=== PATIENT | male | born 1935 | race Caucasian/White ===

== ENCOUNTER → 2016-09-27 | Outpatient (REF) | payer MEDICARE ==
[2016-09-27 17:32] LABS: DIFF SLIDE NUMBER 227; MEAN CORPUSCULAR HEMOGLOBIN 29.7 pg (27.0-33.0); MEAN CORPUSCULAR VOLUME 87.3 fl (80.0-96.0); RED CELL DISTRIBUTION WIDTH 17.5 % (11.5-14.5); WHITE BLOOD COUNT 2.1 K/mm3 (4.0-10.0)
[2016-09-27 17:38] LABS: ALBUMIN 3.2 GM/DL (3.2-5.2); ALBUMIN/GLOBULIN RATIO 1.23 (1.00-1.93); ALKALINE PHOSPHATASE 142 U/L (45-117); ALT/SGPT 27 U/L (12-78); ANION GAP 10 MEQ/L (8-16); AST/SGOT 24 U/L (15-37); BILIRUBIN,TOTAL 0.2 MG/DL (0.2-1.0); BLOOD UREA NITROGEN 28 MG/DL (7-18); CALCIUM LEVEL 8.6 MG/DL (8.8-10.2); CARBON DIOXIDE LEVEL 21 MEQ/L (21-32); CHLORIDE LEVEL 114 MEQ/L (98-107); CREATININE FOR GFR 0.84 MG/DL (0.70-1.30); GLOMERULAR FILTRATION RATE > 60.0 (>35); GLUCOSE, FASTING 148 MG/DL (83-110); POTASSIUM SERUM 4.2 MEQ/L (3.5-5.1); SODIUM LEVEL 145 MEQ/L (136-145); TOTAL PROTEIN 5.8 GM/DL (6.4-8.2)
[2016-09-27 18:34] LABS: PLATELET COUNT, AUTOMATED 23 k/mm3 (150-450)
[2016-09-27 18:37] LABS: BANDS 2 % (< 11); BASOPHILS 2 % (0-4); CORRECTED WHITE BLOOD COUNT 1.7 K/mm3; EOSINOPHILS 10 % (0-5); NUCLEATED RED BLOOD CELL 24 % (0-0)
== END ==
LOC: M LAB REF 16:30
PROVIDERS: ATTEND Nurse Practitioner
DX: C91.00 Acute lymphoblastic leukemia not having achieved remission (principal)

== ENCOUNTER → 2016-10-03 | Outpatient (REF) | payer MEDICARE ==
[2016-10-03 20:50] LABS: DIFF SLIDE NUMBER 340; MEAN CORPUSCULAR HEMOGLOBIN 28.6 pg (27.0-33.0); MEAN CORPUSCULAR HGB CONC 32.7 g/dl (32.0-36.5); MEAN CORPUSCULAR VOLUME 87.3 fl (80.0-96.0); RED CELL DISTRIBUTION WIDTH 17.5 % (11.5-14.5); WHITE BLOOD COUNT 1.4 K/mm3 (4.0-10.0)
[2016-10-03 20:53] LABS: PLATELET COUNT, AUTOMATED 10 k/mm3 (150-450)
[2016-10-03 20:56] LABS: ALBUMIN 2.9 GM/DL (3.2-5.2); ALBUMIN/GLOBULIN RATIO 1.16 (1.00-1.93); ALKALINE PHOSPHATASE 161 U/L (45-117); ALT/SGPT 117 U/L (12-78); ANION GAP 10 MEQ/L (8-16); AST/SGOT 63 U/L (15-37); BILIRUBIN,TOTAL 0.3 MG/DL (0.2-1.0); BLOOD UREA NITROGEN 33 MG/DL (7-18); CALCIUM LEVEL 8.7 MG/DL (8.8-10.2); CARBON DIOXIDE LEVEL 22 MEQ/L (21-32); CHLORIDE LEVEL 113 MEQ/L (98-107); CREATININE FOR GFR 0.88 MG/DL (0.70-1.30); GLOMERULAR FILTRATION RATE > 60.0 (>35); GLUCOSE, FASTING 99 MG/DL (83-110); POTASSIUM SERUM 4.7 MEQ/L (3.5-5.1); SODIUM LEVEL 145 MEQ/L (136-145); TOTAL PROTEIN 5.4 GM/DL (6.4-8.2)
[2016-10-03 21:17] LABS: ANISOCYTOSIS 1+; BANDS 3 % (< 11); CORRECTED WHITE BLOOD COUNT 1.1 K/mm3; EOSINOPHILS 4 % (0-5); NUCLEATED RED BLOOD CELL 24 % (0-0); POLYCHROMASIA 1+
== END ==
LOC: M LAB REF 10:15
PROVIDERS: ATTEND Internal Medicine Hematology & Oncology
DX: C91.00 Acute lymphoblastic leukemia not having achieved remission (principal)

== ENCOUNTER 2016-10-09 13:08 | Observation (INO) | payer MEDICARE ==
[~2016-10-09] VITALS: Ht 165.1 cm; Wt 67.7 kg
[2016-10-09 14:04] LABS: DIFF SLIDE NUMBER 270; MEAN CORPUSCULAR HEMOGLOBIN 28.9 pg (27.0-33.0); MEAN CORPUSCULAR VOLUME 90.5 fl (80.0-96.0); RED CELL DISTRIBUTION WIDTH 17.7 % (11.5-14.5); WHITE BLOOD COUNT 1.3 K/mm3 (4.0-10.0)
[2016-10-09 14:06] LABS: ANION GAP 11 MEQ/L (8-16); BLOOD UREA NITROGEN 41 MG/DL (7-18); CALCIUM LEVEL 8.9 MG/DL (8.8-10.2); CARBON DIOXIDE LEVEL 21 MEQ/L (21-32); CHLORIDE LEVEL 110 MEQ/L (98-107); CREATININE FOR GFR 1.15 MG/DL (0.70-1.30); GLOMERULAR FILTRATION RATE > 60.0 (>35); GLUCOSE, FASTING 105 MG/DL (83-110); POTASSIUM SERUM 4.4 MEQ/L (3.5-5.1); SODIUM LEVEL 142 MEQ/L (136-145)
[2016-10-09 14:07] LABS: PLATELET COUNT, AUTOMATED 4 k/mm3 (150-450)
[2016-10-09 14:22] LABS: BANDS 6 % (< 11); BASOPHILS 1 % (0-4); BLAST CELLS 10 % (0-0); CORRECTED WHITE BLOOD COUNT 1.2 K/mm3; EOSINOPHILS 1 % (0-5); NUCLEATED RED BLOOD CELL 13 % (0-0)
[2016-10-09 14:23] LABS: ANISOCYTOSIS 1+; HYPOCHROMASIA 1+
[2016-10-09] MEDS ORDERED: AMLO10TA2 PO (15:34)
[2016-10-09] MEDS ORDERED: VITA10002 PO (15:34)
[2016-10-09] MEDS ORDERED: FURO40TA2 PO (15:34)
[2016-10-09] MEDS ORDERED: BENI20TA5 PO (15:34)
[2016-10-09] MEDS ORDERED: THYR60TA PO (15:34)
[2016-10-09] MEDS ORDERED: SUCR1SS PO (15:34)
[2016-10-09] MEDS ORDERED: DRIS50002 PO (15:41)
[2016-10-09] MEDS ORDERED: PROC10TA PO (15:41)
[2016-10-09] MEDS ORDERED: ZETI10TA2 PO (15:41)
[2016-10-09] MEDS ORDERED: IRON65TA PO (15:41)
[2016-10-09] MEDS ORDERED: ZOLO50TA PO (15:41)
[2016-10-09] MEDS ORDERED: MIRT15TA3 PO (15:41)
[2016-10-09] MEDS ORDERED: TRAZ50TA4 PO (15:41)
[2016-10-09] MEDS ORDERED: PRESCAP PO (15:41)
[2016-10-09] MEDS ORDERED: WELC625T PO (15:41)
[2016-10-09] MEDS ORDERED: TUMS500C PO (15:41)
[2016-10-09] MEDS ORDERED: OMEP40CA2 PO (15:41)
[2016-10-09 16:00] VITALS: BP 122/81
--- NOTE | 2016-10-09 16:57 | EDDOCDS ---
Physician Documentation [facility] Name: Dimas Sherman Age: 81 yrs Sex: Male : 1935 Arrival Date: 10/09/2016 Time: 13:08 Bed 2 Private MD: Derian Kay E. Disposition: 10/09 15:06 Critical Care: Critical care not applicable. pc Disposition: 10/09/16 15:11 Hospitalization ordered by Rangel Medina for Inpatient Admission. 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 - Bed requested for M PCU. - Status is Inpatient Admission. ml6 - Condition is Stable. - Problem is an acute exacerbation. - Symptoms are unchanged. HPI: 15:06 This 81 yrs old Male presents to ER via Ambulance with complaints of Blood pc Pressure Problem. 15:06 The history is obtained from the patient. He was seen by his PCP today and sent for pc admission for transfusions. He has ALL, being treated palliatively. He was found to be hypotensive upon standing today. He denies any pain. His only complaint is fatigue. The patient has experienced similar episodes in the past, chronically. Historical: - Allergies: no known allergies; - Home Meds: 1. amlodipine 10 mg Oral tab 1 tab once daily (Last dose: 10/09/2016 07:00) 2. [place] Thyroid 60 mg Oral tab daily (Last dose: 10/09/2016 07:00) 3. B-12 DOTS oral 1000 mcg daily (Last dose: 10/09/2016 07:00) 4. Benicar 20 mg oral tab 1 tab once daily (Last dose: 10/09/2016 07:00) 5. Carafate 100 mg/mL Oral susp 10 mL 4 times per day (Last dose: 10/09/2016 07:00) 6. furosemide 40 mg Oral tab 1 tab once daily (Last dose: 10/09/2016 07:00) 7. omeprazole 40 mg Oral cpDR 2 times per day (Last dose: 10/09/2016 07:00) 8. Iron CR unknown Oral daily (Last dose: 10/09/2016 07:00) 9. persavision twice a day (Last dose: 10/09/2016 07:00) 10. WelChol 625 mg oral tab 3 tabs 2 times per day (Last dose: 10/09/2016 07:00) 11. Vitamin D Oral 09084 unit weekly (Last dose: 10/09/2016 07:00) 12. Zetia 10 mg Oral tab 1 tab once daily (Last dose: 10/09/2016 07:00) 13. Zoloft 100 mg Oral tab 1.5 tabs once daily (Last dose: 10/09/2016 07:00) - PMHx: Anemia; Arthritis; Depression; GERD; Headaches; hyperlipidemia; Hypertension; Hypothyroidism; prostate CA; thrombopenia; - PSHx: Cholecystectomy; Hernia repair; - The history from nurses notes was reviewed: and I agree with what is documented. - Social history: Smoking status: Patient states former smoker of tobacco. No barriers to communication noted, Speaks appropriately for age. - : The pt / caregiver states he / she is not on anticoagulants. Home medication list is obtained from the patient. - Hospitalizations: : No recent hospitalization is reported. - Exposure Risk Screening:: None identified. - Immunization history:: All immunizations up-to-date. - Family history: Not pertinent. - Social history:: the patient is a non-smoker, the patient does not drink alcohol. ROS: 15:06 All systems are negative except as listed. pc Exam: 15:06 General Appearance: no acute distress, alert. pc 15:06 EENT: ears, nose and throat normal, pharynx normal, mucous membranes moist pale conjunctiva. 15:06 Neck: The exam reveals no acute abnormalities. ROM is normal and painless. No nuchal rigidity is noted.. 15:06 Respiratory: no respiratory distress, normal breath sounds. 15:06 CVS: regular pulse rate, regular rhythm, normal S1 and S2, no murmurs, strong peripheral pulses, normal capillary refill, BP 115/ 55. 15:06 Abdomen: soft, non-tender, no organomegaly, normal bowel sounds. 15:06 Back: normal inspection. 15:06 Skin: skin color is normal, warm, dry. 15:06 Extremities: The extremities have a grossly normal appearance. 15:06 Neuro: oriented x 3, cranial nerves normal as tested, no motor deficits, no sensory deficits. 15:06 Psych: normal mood. Vital Signs: 13:21 BP 117 / 58; Pulse 80; Resp 18; Temp 97.8; Pulse Ox 94% on R/A; Weight 68.49 kg / ct3 150.99 lbs (M); Height 5 ft. 5 in. (165.10 cm) (R); Pain 7/10; 14:15 BP 110 / 56 (auto/); ml6 14:15 Pulse 73 MON; Resp 18; Pulse Ox 97% on R/A; Pain 0/10; ml6 14:30 BP 115 / 55 (auto/); ml6 14:30 Pulse 72 MON; Resp 18; Pulse Ox 96% on R/A; Pain 0/10; ml6 15:00 BP 128 / 60 (auto/); ml6 15:00 Pulse 74 MON; Resp 16; Pulse Ox 98% on R/A; ml6 15:30 BP 126 / 52 (auto/); ml6 15:30 Pulse 82 MON; Resp 18; Pulse Ox 98% on R/A; ml6 15:45 BP 129 / 51 (auto/); ml6 15:45 Pulse 79 MON; Resp 16; Pulse Ox 98% on R/A; ml6 16:00 BP 127 / 57 (auto/); ml6 16:00 Pulse 87 MON; Resp 16; Pulse Ox 96% on R/A; ml6 16:30 BP 106 / 55 (auto/); ml6 16:30 Pulse 80 MON; Resp 16; Pulse Ox 99% on R/A; ml6 16:45 BP 141 / 63 (auto/); ml6 16:45 Pulse 83 MON; Resp 18; Temp 98.1(O); Pulse Ox 98% on R/A; Pain 0/10; ml6 13:21 Body Mass Index 25.13 (68.49 kg, 165.10 cm) ct3 MDM: 13:18 ECG WITH READING ER PHYS+CARDIAG ordered. EDMS 13:37 IV Saline Lock ordered. pc 13:37 NS 0.9% 1000 ml IV at 100 mL/hr continuous ordered. pc 13:38 Community Nurse/Pulse Ox/q 30 min VS ordered. pc 13:38 CBC with Diff Ordered. EDMS 13:38 MED Profile Ordered. EDMS 13:38 Type & Screen Ordered. EDMS 14:09 DIFFERENTIAL NO CHARGE Ordered. EDMS 14:38 REGULAR+DIET ordered. EDMS 14:40 CBC with Diff Reviewed. pc 14:40 MED Profile Reviewed. pc 14:40 Type & Screen Reviewed. pc 14:40 PLATELET ESTIMATE Reviewed. pc 14:55 Transfuse Single Donor Pheresis Platelets, ensure ordered in lab ordered. pc 14:55 Transfuse PRBC's 1 unit, ensure PRBCs ordered in lab ordered. pc 14:55 Type and Cross, Packed Cells Ordered. EDMS 14:55 Platelets Pheresis Ordered. EDMS 14:56 BED REQUEST+ADM ordered. EDMS 15:06 Differential Diagnosis: anemia, ALL. Plan: labs, EKG. Data reviewed: old medical pc records, vital signs, nurses notes, EKG(s), lab test results. Test interpretation: EKG. 15:06 Test interpretation: LAB - all labs as ordered have been reviewed, interpreted and pc considered in the overall management of the clinical presentation;. The patient has been re-examined and re-evaluated. There is no appreciated change of the patient's symptoms at this time. Physician consultation: Dr. Lowery regarding admission. Disposition: The historical points, examination findings, and any diagnostic results supporting the provided diagnosis, were discussed with the patient or legal guardian. The need for further work-up and/or treatment in the hospital was explained. 15:32 Admission / Observation Status ordered. EDMS 15:32 2 GRAM SODIUM DIET ordered. EDMS 15:39 Financial registration complete. [facility] 16:03 [facility] Payment Agreement was scanned into [employer] and attached to record. [email or web address] EC:06 Rate is 71 beats/min. Rhythm is regular, Normal Sinus Rhythm with PACs. QRS Mcgregor is pc Normal. MI interval is normal. QRS interval is normal. QT interval is normal. No Q waves. T waves are Normal. No ST changes noted. Clinical impression: Normal Sinus Rhythm. Administered Medications: 13:46 Drug: NS 0.9% 1000 ml [sodium chloride 0.9 % intravenous solution] Route: IV; Rate: 100 ml6 mL/hr; Site: right antecubital; Signatures: Dispatcher [employer] [facility] Magdy Montejo MD MD pc Peters, Mary, RN RN mcp Lowe, Matthew, RN RN ml6 Beck, Gabriela gjb Sorenson, Kimberly, Reg Reg [email or web address] The chart was reviewed and I authenticate all verbal orders and agree with the evaluation and treatment provided.Corrections: (The following items were deleted from the chart) 15:14 14:58 TYPE & SCREEN ordered. EDCA EDMS Attachments: 16:03 [facility] Payment Agreement [email or web address] MTDD
--- NOTE | 2016-10-09 16:57 | EDDOCDS ---
Nurse's Notes [facility] Name: Dimas Sherman Age: 81 yrs Sex: Male : 1935 Arrival Date: 10/09/2016 Time: 13:08 Bed 2 Private MD: Derian Kay E. Diagnosis: Acute lymphoblastic leukemia [ALL]-with palliative care only;Pancytopenia Presentation: 10/09 13:21 Presenting complaint: Patient states: states that he was at an appointment with his ml6 PCP, Patient states that his SBP was 82, sent here for evaluation, patient denies any further complaint. Adult Sepsis Screening: The patient does not have new or worsening altered mentation. Patient's respiratory rate is less than 22. Systolic blood pressure is greater than 100. Patient has a qSOFA score of 0- Negative Sepsis Screen. Suicide/Homicide risk assessment- the patient denies having any suicidal and/or homicidal ideations and does not present with any other emotional, behavioral or mental health complaints. 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 Transition of care: patient was not received from another setting of care. 13:21 Acuity: MICHAEL Level 3 ml6 13:21 Method Of Arrival: Ambulance ml6 Triage Assessment: 13:22 General: Appears in no apparent distress, Behavior is appropriate for age, cooperative. ml6 Pain: Denies pain. The patient is triaged at the bedside. See Assessment in Nurses Notes section of ED record. Neurological: No deficits noted. Level of Consciousness is awake, alert, Oriented to person, place, time. Cardiovascular: No deficits noted. Capillary refill < 3 seconds is brisk in bilateral fingers toes. Respiratory: No deficits noted. GI: No deficits noted. Abdomen is flat, non- distended Bowel sounds present X 4 quads. Historical: - Allergies: no known allergies; - Home Meds: 1. amlodipine 10 mg Oral tab 1 tab once daily (Last dose: 10/09/2016 07:00) 2. [place] Thyroid 60 mg Oral tab daily (Last dose: 10/09/2016 07:00) 3. B-12 DOTS oral 1000 mcg daily (Last dose: 10/09/2016 07:00) 4. Benicar 20 mg oral tab 1 tab once daily (Last dose: 10/09/2016 07:00) 5. Carafate 100 mg/mL Oral susp 10 mL 4 times per day (Last dose: 10/09/2016 07:00) 6. furosemide 40 mg Oral tab 1 tab once daily (Last dose: 10/09/2016 07:00) 7. omeprazole 40 mg Oral cpDR 2 times per day (Last dose: 10/09/2016 07:00) 8. Iron CR unknown Oral daily (Last dose: 10/09/2016 07:00) 9. persavision twice a day (Last dose: 10/09/2016 07:00) 10. WelChol 625 mg oral tab 3 tabs 2 times per day (Last dose: 10/09/2016 07:00) 11. Vitamin D Oral 21238 unit weekly (Last dose: 10/09/2016 07:00) 12. Zetia 10 mg Oral tab 1 tab once daily (Last dose: 10/09/2016 07:00) 13. Zoloft 100 mg Oral tab 1.5 tabs once daily (Last dose: 10/09/2016 07:00) - PMHx: Anemia; Arthritis; Depression; GERD; Headaches; hyperlipidemia; Hypertension; Hypothyroidism; prostate CA; thrombopenia; - PSHx: Cholecystectomy; Hernia repair; - The history from nurses notes was reviewed: and I agree with what is documented. - Social history: Smoking status: Patient states former smoker of tobacco. No barriers to communication noted, Speaks appropriately for age. - : The pt / caregiver states he / she is not on anticoagulants. Home medication list is obtained from the patient. - Hospitalizations: : No recent hospitalization is reported. - Exposure Risk Screening:: None identified. - Immunization history:: All immunizations up-to-date. - Family history: Not pertinent. - Social history:: the patient is a non-smoker, the patient does not drink alcohol. Screenin:50 Screening information is obtained from the patient. Fall risk: No risks identified. ml6 Assistance ADL's: requires no assistance with activities of daily living. Abuse/DV Screen: The patient / caregiver reports he/she is: not in a situation that causes fear, pain or injury. Nutritional screening: No deficits noted. Advance Directives: Currently, there is no health care proxy. home support is adequate. Assessment: 13:21 General: see triage assessment. ml6 14:02 Reassessment: Patient resting on stretcher. Denies chest pain or shortness of breath. kcs Talking with family member. awake overnight monitor = RSR.. 14:20 General: Appears in no apparent distress, comfortable, Behavior is appropriate for age, ml6 cooperative. Pain: Denies pain. Neurological: No deficits noted. Level of Consciousness is awake, alert, Oriented to person, place, time. Cardiovascular: No deficits noted. Capillary refill < 3 seconds is brisk in bilateral fingers toes Heart tones S1 S2 present Edema is absent. Pulses are all present. Rhythm is regular. Respiratory: No deficits noted. Airway is patent Respiratory effort is even, unlabored, Respiratory pattern is regular, symmetrical, Breath sounds are clear bilaterally. GI: No deficits noted. 15:20 Reassessment: Patient appears in no apparent distress at this time. Patient denies pain ml6 at this time. Patient states feeling better. Patient states symptoms have improved. patient continues to have no c/o pain, dizziness, SOB, or pain. 16:05 General: PRBC [id number] began infusing. ml6 16:20 Reassessment: Patient appears in no apparent distress at this time. Patient denies pain ml6 at this time. Patient states feeling better. Patient states symptoms have improved. 16:40 General: Platelets [id number] began infusing. ml6 16:53 General: Appears in no apparent distress, comfortable, Behavior is appropriate for age, ml6 cooperative. Pain: Denies pain. Neurological: No deficits noted. Cardiovascular: No deficits noted. Capillary refill < 3 seconds is brisk in bilateral fingers toes. Respiratory: No deficits noted. Airway is patent Respiratory effort is even, unlabored, Respiratory pattern is regular, symmetrical. Vital Signs: 13:21 BP 117 / 58; Pulse 80; Resp 18; Temp 97.8; Pulse Ox 94% on R/A; Weight 68.49 kg (M); ct3 Height 5 ft. 5 in. (165.10 cm) (R); Pain 7/10; 14:15 BP 110 / 56 (auto/); ml6 14:15 Pulse 73 MON; Resp 18; Pulse Ox 97% on R/A; Pain 0/10; ml6 14:30 BP 115 / 55 (auto/); ml6 14:30 Pulse 72 MON; Resp 18; Pulse Ox 96% on R/A; Pain 0/10; ml6 15:00 BP 128 / 60 (auto/); ml6 15:00 Pulse 74 MON; Resp 16; Pulse Ox 98% on R/A; ml6 15:30 BP 126 / 52 (auto/); ml6 15:30 Pulse 82 MON; Resp 18; Pulse Ox 98% on R/A; ml6 15:45 BP 129 / 51 (auto/); ml6 15:45 Pulse 79 MON; Resp 16; Pulse Ox 98% on R/A; ml6 16:00 BP 127 / 57 (auto/); ml6 16:00 Pulse 87 MON; Resp 16; Pulse Ox 96% on R/A; ml6 16:30 BP 106 / 55 (auto/); ml6 16:30 Pulse 80 MON; Resp 16; Pulse Ox 99% on R/A; ml6 16:45 BP 141 / 63 (auto/); ml6 16:45 Pulse 83 MON; Resp 18; Temp 98.1(O); Pulse Ox 98% on R/A; Pain 0/10; ml6 13:21 Body Mass Index 25.13 (68.49 kg, 165.10 cm) ct3 Vitals: 13:21 Log In Time N/A - ambulance arrival. ct3 ED Course: 13:09 Patient visited by Zehra Gordon PCA. ar3 13:09 Patient moved to Waiting ar3 13:10 Cha Kraemr,RN is Primary Nurse. ar3 13:10 Hiren Nayak, RN is Primary Nurse. ar3 13:10 Derian Kay is Private Physician. ar3 13:10 Patient moved to 2 ar3 13:21 Patient has correct armband on for positive identification. Placed in gown. Bed in low ct3 position. Call light in reach. Side rails up X2. awake overnight monitor on. Pulse ox on. NIBP on. 13:21 Inserted peripheral IV: 18gauge IV in right antecubital area and blood collected. ml6 Patient tolerated the procedure well. Labs drawn. (by ED staff). 13:24 Patient visited by Candy Abraham PCA. ct3 13:24 EKG done. (by ED staff). Reviewed by Magdy Montejo MD. ct3 13:33 Triage Initiated ml6 13:37 Magdy Montejo MD is Attending Physician. pc 13:37 Patient visited by Magdy Montejo MD. pc 14:27 Patient visited by Hiren Nayak RN. ml6 14:27 DIFFERENTIAL NO CHARGE Sent. ml6 14:44 Primary Nurse role handed off by Cha Kramer,PEYTON js13 15:11 Rangel Medina is Hospitalizing Provider. pc 16:03 [facility] Payment Agreement was scanned into [employer] and attached to record. [email or web address] 16:50 Inserted peripheral IV: 16gauge IV in left forearm and blood collected. Patient ml6 tolerated the procedure well. No procedures done that require assistance. 16:54 The patient / caregiver is instructed regarding the plan of care and ED course. ml6 Administered Medications: 13:46 Drug: NS 0.9% 1000 ml [sodium chloride 0.9 % intravenous solution] Route: IV; Rate: 100 ml6 mL/hr; Site: right antecubital; Order Results: Lab Order: CBC with Diff; SPEC'M 10/09/16 13:22 Test: WHITE BLOOD COUNT; Value: 1.3; Range: 4.0-10.0; Abnormal: Below low normal; Units: K/mm3; Status: F Test: RED BLOOD COUNT; Value: 2.62; Range: 4.30-6.10; Abnormal: Below low normal; Units: M/mm3; Status: F Test: HEMOGLOBIN; Value: 7.6; Range: 14.0-18.0; Abnormal: Below low normal; Units: g/dl; Status: F Test: HEMATOCRIT; Value: 23.7; Range: 42.0-52.0; Abnormal: Below low normal; Units: %; Status: F Test: MEAN CORPUSCULAR VOLUME; Value: 90.5; Range: 80.0-96.0; Units: fl; Status: F Test: MEAN CORPUSCULAR HEMOGLOBIN; Value: 28.9; Range: 27.0-33.0; Units: pg; Status: F Test: MEAN CORPUSCULAR HGB CONC; Value: 32.0; Range: 32.0-36.5; Units: g/dl; Status: F Test: RED CELL DISTRIBUTION WIDTH; Value: 17.7; Range: 11.5-14.5; Abnormal: Above high normal; Units: %; Status: F Test: PLATELET COUNT, AUTOMATED; Value: 4; Range: 150-450; Abnormal: Critical Low; Units: k/mm3; Status: F Test: CORRECTED WHITE BLOOD COUNT; Value: 1.2; Units: K/mm3; Status: F Test: RED BLOOD COUNT; Value: 2.62; Range: 4.30-6.10; Abnormal: Below low normal; Units: M/mm3; Status: F Test: HEMOGLOBIN; Value: 7.6; Range: 14.0-18.0; Abnormal: Below low normal; Units: g/dl; Status: F Test: HEMATOCRIT; Value: 23.7; Range: 42.0-52.0; Abnormal: Below low normal; Units: %; Status: F Test: MEAN CORPUSCULAR VOLUME; Value: 90.5; Range: 80.0-96.0; Units: fl; Status: F Test: MEAN CORPUSCULAR HEMOGLOBIN; Value: 28.9; Range: 27.0-33.0; Units: pg; Status: F Test: MEAN CORPUSCULAR HGB CONC; Value: 32.0; Range: 32.0-36.5; Units: g/dl; Status: F Test: RED CELL DISTRIBUTION WIDTH; Value: 17.7; Range: 11.5-14.5; Abnormal: Above high normal; Units: %; Status: F Test: PLATELET COUNT, AUTOMATED; Value: 4; Range: 150-450; Abnormal: Critical Low; Units: k/mm3; Status: F Test: NEUTROPHILS; Value: 9; Range: 35-75; Abnormal: Below low normal; Units: %; Status: F Test: BANDS; Value: 6; Range: < 11; Units: %; Status: F Test: LYMPHOCYTES; Value: 58; Range: 16-52; Abnormal: Above high normal; Units: %; Status: F Test: MONOCYTES; Value: 6; Range: 0-8; Units: %; Status: F Test: EOSINOPHILS; Value: 1; Range: 0-5; Units: %; Status: F Test: BASOPHILS; Value: 1; Range: 0-4; Units: %; Status: F Test: METAMYELOCYTES; Value: 5; Range: 0-0; Abnormal: Above high normal; Units: %; Status: F Test: MYELOCYTES; Value: 4; Range: 0-0; Abnormal: Above high normal; Units: %; Status: F Test: BLAST CELLS; Value: 10; Range: 0-0; Abnormal: Above high normal; Units: %; Status: F Test: NUCLEATED RED BLOOD CELL; Value: 13; Range: 0-0; Abnormal: Above high normal; Units: %; Status: F Test: RBC MORPHOLOGY; Value: NORMAL; Status: F Test: HYPOCHROMASIA; Value: 1+; Status: F Test: ANISOCYTOSIS; Value: 1+; Status: F Lab Order: MED Profile; SPEC'M 10/09/16 13:22 Test: GLUCOSE, FASTING; Value: 105; Range: 83-110; Units: MG/DL; Status: F Test: BLOOD UREA NITROGEN; Value: 41; Range: 7-18; Abnormal: Above high normal; Units: MG/DL; Status: F Test: CREATININE FOR GFR; Value: 1.15; Range: 0.70-1.30; Units: MG/DL; Status: F Test: GLOMERULAR FILTRATION RATE; Value: > 60.0; Range: >35; Status: F Test: SODIUM LEVEL; Value: 142; Range: 136-145; Units: MEQ/L; Status: F Test: POTASSIUM SERUM; Value: 4.4; Range: 3.5-5.1; Units: MEQ/L; Status: F Test: CHLORIDE LEVEL; Value: 110; Range: 98-107; Abnormal: Above high normal; Units: MEQ/L; Status: F Test: CARBON DIOXIDE LEVEL; Value: 21; Range: 21-32; Units: MEQ/L; Status: F Test: ANION GAP; Value: 11; Range: 8-16; Units: MEQ/L; Status: F Test: CALCIUM LEVEL; Value: 8.9; Range: 8.8-10.2; Units: MG/DL; Status: F Test Note: ; Units are mL/min/1.73 m2 Chronic Kidney Disease Staging per NKF: Stage I & II GFR >=60 Normal to Mildly Decreased Stage III GFR 30-59 Moderately Decreased Stage IV GFR 15-29 Severely Decreased Stage V GFR <15 Very Little GFR Left ESRD GFR <15 on FISH AND WILDLIFE TECHNICIAN Lab Order: Type & Screen; SPEC'M 10/09/16 13:22 Test: BLOOD TYPE; Value: AB POS; Status: F Test: AB SCREEN (INDIRECT YOLY)GEL; Value: NEGATIVE; Status: F Lab Order: PLATELET ESTIMATE; SPEC'M 10/09/16 13:22 Test: PLATELET ESTIMATE; Value: MARKED DECREASE; Range: NORMAL; Status: F Outcome: 15:11 Decision to Hospitalize by Provider. pc 16:54 Discharge Assessment: Patient awake, alert and oriented x 3. No cognitive and/or ml6 functional deficits noted. Patient verbalized understanding of disposition instructions. patient administered narcotics - no. The following High Risk Discharge criteria are identified: None. Admitted to PCU accompanied by nurse, accompanied by tech, via stretcher, on monitor, with chart. Condition: stable. No special radiology studies were completed. Property :Personal belongings accompany Pt. 16:56 Patient left the ED. ml6 Signatures: Magdy Montejo MD MD pc Sleeman, Kacey, RN RN Hiren White RN RN ml6 Zehra Gordon, CITY ALDERMAN CITY ALDERMAN ar3 AbrahamCandy quiñonez, CITY ALDERMAN CITY ALDERMAN ct3 Radha Chappell RN RN [id number] Doretha Hernández, Reg Reg [email or web address] Corrections: (The following items were deleted from the chart) 13:22 13:21 BP 117 / 58; Pulse 80bpm; Resp 18bpm; Pulse Ox 94% RA; Temp 97.8F; 68.49 kg ct3 Measured; Height 5 ft. 5 in. Reported; BMI: 25.1; Pain 0/10; ct3 MTDD
[2016-10-09] MEDS ORDERED: OMEPRAZOLE 20 MG CAP PO PRN (19:00)
[2016-10-09] MEDS ORDERED: SUCRALFATE SUSP 1GM/10ML UD PO PRN (19:00)
[2016-10-09 19:49] VITALS: BP 132/62
--- NOTE | 2016-10-09 19:53 | HPE ---
DATE OF ADMISSION: 10/09/2016 PRIMARY CARE PROVIDER: Dr. Derian Kay REASON FOR ADMISSION: Chronic transfusion. History of chronic anemia. HISTORY OF PRESENT ILLNESS: The patient is an 81-year-old male with past medical history significant for acute lymphoblastic leukemia (ALL), arthritis, depression, gastroesophageal reflux disease, headaches, hypertension, hyperlipidemia, hypothyroidism, presented to the emergency room after seeing Dr. Kay early in the office. The patient normally gets blood transfusion every 2 weeks. He has been getting it in [place] where he sees his oncologist. Recently, however, the patient and son decided to continue to get transfusions in [place]. They were unable to schedule them through the transfusion unit, so they presented to the emergency room. The patient was found to have platelets of 4,000, hemoglobin 7.6, hematocrit 23.72. Two units of packed RBCs and two platelets were ordered in the emergency room. The patient is currently asymptomatic. Denies any chest pain, dizziness, shortness of breath. Denies any nausea, vomiting, diaphoresis. Was admitted under hospitalist service. Will be signed out to Dr. Aki Bettencourt. REVIEW OF SYSTEMS: 12-point review of systems was obtained all of which was negative, except for as mentioned above. PAST MEDICAL HISTORY: Significant for ALL diagnosed in June 2016. Gets biweekly transfusions in [place] where he sees oncology. History of arthritis. History of depression. Gastroesophageal reflux disease (GERD). Headaches. Hyperlipidemia. Hypertension. Hypothyroidism. History of prostate cancer. Thrombocytopenia. ALLERGIES: No known drug allergies. HOME MEDICATIONS: include - amlodipine 10 mg by mouth daily - Tums 500 mg by mouth twice a day - Welchol 1875 mg by mouth twice a day - vitamin B12 1000 mcg by mouth daily - Zetia 10 mg by mouth daily - Lasix 40 mg by mouth daily - iron 325 mg by mouth three times a day - mirtazapine 50 mg by mouth at bedtime - Benicar 20 mg by mouth daily - omeprazole 40 mg by mouth twice a day - Zoloft 50 mg by mouth at bedtime - Carafate 10 mL by mouth four times a day - thyroid 60 mg tablets by mouth daily - trazodone 50 mg by mouth at bedtime - vitamin D 50,000 units on Sundays SOCIAL HISTORY: The patient denies alcohol, tobacco use. Lives at home with his son and [id number]. FAMILY HISTORY: Noncontributory. PAST SURGICAL HISTORY: Cholecystectomy, hernia repair, right foot surgery. PHYSICAL EXAMINATION: Blood pressure 117/58, pulse 80, respiratory rate 18, temperature 97.8, pulse ox 94% on room air. HEENT: Pupils equal, round, reactive to light and accommodation. Neck: Supple. No jugular venous distention (JVD). Lungs: Clear bilaterally. Abdomen: Soft, nontender and nondistended. Extremities: No clubbing, cyanosis or edema. Neuro: Cranial nerves II through XII grossly intact. No focal deficits. Skin: No obvious lesions or rashes. Diffuse petechiae. LABORATORY FINDINGS: WBC is 1.3, hemoglobin 7.6, hematocrit 23.7, platelet count 4000. Sodium 142, potassium 4.4, chloride 110, BUN 41, creatinine 1.15. ASSESSMENT/PLAN: 1. Acute lymphoblastic leukemia. The patient get palliative care with biweekly transfusion. He recently decided to continue getting his transfusions in [place] however, he was not set up through the transfusion site in [place] so he presented to the emergency room for transfusion today. Two units of packed RBCs and platelets were ordered. Repeat blood work the morning. 2. History of hypertension. Patient is currently hypotensive. We will hold blood pressure medications at this time as well as his Lasix. 3. History of depression. Continue Zoloft 100 mg by mouth daily. 4. History of hyperlipidemia. Continue patient's home medication. 5. History of hypothyroidism. 6. Deep venous thrombosis (DVT) prophylaxis. SCDs while in bed. The patient will be seen by Dr. Aki Bettencourt in the morning.
[2016-10-09] MEDS: CALCIUM CARBONATE 500 MG CHEW U/D PO SCH (19:59)
[2016-10-09] MEDS: ACETAMINOPHEN TAB 650MG DOSE (2X325MG) PO PRN (19:59)
[2016-10-09] MEDS: FERROUS SULFATE 325MG TAB PO SCH (20:00)
[2016-10-09] MEDS ORDERED: SERTRALINE HCL 50 MG TAB PO SCH (21:00)
[2016-10-09] MEDS ORDERED: FUROSEMIDE 20 MG/2 ML VIAL (J1940) IV ONE (21:00)
[2016-10-09] MEDS ORDERED: MIRTAZAPINE 15 MG TAB PO SCH (21:00)
[2016-10-09] MEDS ORDERED: traZODone 50 MG TAB PO SCH (21:00)
[2016-10-09 22:13] VITALS: BP 116/64
[2016-10-09] MEDS: COLESEVELAM 625 MG TAB (WELCHOL) PO SCH (22:17)
[2016-10-09 22:30] VITALS: BP 115/61
[2016-10-09 23:30] VITALS: BP 112/62
[2016-10-09 23:53] VITALS: BP 129/66
[2016-10-10] VITALS (7 sets, daily range): BP systolic 112–137; BP diastolic 56–74
[2016-10-10] MEDS: ACETAMINOPHEN TAB 650MG DOSE (2X325MG) PO PRN (00:56)
[2016-10-10 06:09] LABS: ALBUMIN/GLOBULIN RATIO 1.11 (1.00-1.93); ALKALINE PHOSPHATASE 194 U/L (45-117); ALT/SGPT 180 U/L (12-78); ANION GAP 8 MEQ/L (8-16); AST/SGOT 125 U/L (15-37); BLOOD UREA NITROGEN 40 MG/DL (7-18); CALCIUM LEVEL 8.4 MG/DL (8.8-10.2); CARBON DIOXIDE LEVEL 24 MEQ/L (21-32); CHLORIDE LEVEL 110 MEQ/L (98-107); CREATININE FOR GFR 0.91 MG/DL (0.70-1.30); GLOMERULAR FILTRATION RATE > 60.0 (>35); GLUCOSE, FASTING 94 MG/DL (83-110); POTASSIUM SERUM 4.1 MEQ/L (3.5-5.1); SODIUM LEVEL 142 MEQ/L (136-145); TOTAL PROTEIN 5.7 GM/DL (6.4-8.2)
[2016-10-10 06:11] LABS: DIFF SLIDE NUMBER 78; MEAN CORPUSCULAR HEMOGLOBIN 29.1 pg (27.0-33.0); MEAN CORPUSCULAR HGB CONC 32.9 g/dl (32.0-36.5); MEAN CORPUSCULAR VOLUME 88.6 fl (80.0-96.0); RED CELL DISTRIBUTION WIDTH 17.4 % (11.5-14.5); WHITE BLOOD COUNT 1.5 K/mm3 (4.0-10.0)
[2016-10-10 06:13] LABS: PLATELET COUNT, AUTOMATED 35 k/mm3 (150-450)
[2016-10-10 07:10] LABS: BANDS 3 % (< 11); BASOPHILS 1 % (0-4); BLAST CELLS 3 % (0-0); CORRECTED WHITE BLOOD COUNT 1.3 K/mm3; EOSINOPHILS 2 % (0-5); NUCLEATED RED BLOOD CELL 12 % (0-0)
[2016-10-10 07:12] LABS: ANISOCYTOSIS 1+
[2016-10-10 07:18] LABS: POIKILOCYTOSIS 1+; TARGET CELLS 1+
--- NOTE | 2016-10-10 07:58 | ECGEPIP ---
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
[2016-10-10] MEDS: FERROUS SULFATE 325MG TAB PO SCH (08:56)
[2016-10-10] MEDS: CALCIUM CARBONATE 500 MG CHEW U/D PO SCH (08:56)
[2016-10-10] MEDS: COLESEVELAM 625 MG TAB (WELCHOL) PO SCH (08:56)
[2016-10-10] MEDS ORDERED: EZETIMIBE 10 MG TAB (ZETIA) PO SCH (09:00)
[2016-10-10] MEDS ORDERED: CYANOCOBALAMIN 500 MCG TAB PO SCH (09:00)
[2016-10-10] MEDS ORDERED: THYROID 30 MG TAB PO SCH (09:00)
[2016-10-10] MEDS ORDERED: FURO20TA2 PO (11:29)
--- NOTE | 2016-10-10 21:21 | DSES ---
DATE OF ADMISSION: 10/09/2016 DATE OF DISCHARGE: 10/10/2016 This is a very pleasant 81-year-old gentle with a history of acute lymphoblastic leukemia that presented to his outpatient office with anemia, shortness of breath, lightheadedness, and weakness. Patient was found to have some anemia with a hemoglobin of 7.6 and a hematocrit of 23. Primary care provider was unsuccessful in scheduling outpatient transfusion. Therefore, patient necessitated admission for transfusion. Patient received two units of packed red cells, tolerated that well. He was medicated with 20 mg of Lasix intravenously (IV) to mitigate any heart failure. He tolerated this well. Today states that he is without shortness of breath, chest pain, heart palpitations, fatigue. Is able to ambulate back and forth to the bathroom without difficulty. On physical examination, hemoglobin 8.6, hematocrit 26.3, white blood cell count 1500. Blood pressures have been soft throughout hospitalization, in the 115s/70s; most recent 133/74, heart rate 81, respiratory rate 18, oxygen saturation 95% on room air. Neck is supple without lymphadenopathy or jugular venous distention (JVD). CARDIOVASCULAR: Heart rate and rhythm are regular. PULMONARY: Lungs clear to auscultation bilaterally. ABDOMEN: Soft and nontender. Bilateral lower extremities are without any edema. NEUROLOGIC: Patient is alert and oriented times three. ASSESSMENT: 1. Acute lymphoblastic leukemia with chronic anemia, in need of blood transfusion. 2. History of hypertension. 3. History of congestive heart failure (CHF). 4. History of gastroesophageal reflux disease (GERD). PLAN: Patient will be discharged home. Diet is as tolerated. Activity as tolerated. MEDICATIONS: Include: - furosemide 20 mg by mouth daily; this is a decrease from 40 mg daily and was confirmed with his primary care provider (PCP) STOPPED MEDICATIONS: - amlodipine 10 mg daily - furosemide 40 mg daily - Benicar 20 mg daily. CONTINUED MEDICATIONS: - Tums 500 mg by mouth twice a day - Welchol 625 mg by mouth twice a day ; he used to take 1875 mg - vitamin B12 1000 mcg by mouth daily - Zetia 10 mg by mouth daily - iron 325 mg by mouth three times a day - mirtazapine 15 mg by mouth nightly - omeprazole 40 mg by mouth twice a day as needed for gastrointestinal (GI) upset. - PreserVision one capsule by mouth twice a day - Phenergan 10 mg by mouth as needed for nausea - sertraline 50 mg by mouth nightly - Carafate 1 gram per 10 mL; he used to take 10 mL by mouth four times a day as needed for gastrointestinal (GI) upset. - [place] Thyroid 60 mg by mouth daily - trazodone 50 mg by mouth nightly - vitamin D 50,000 International Units by mouth weekly Patient is discharged in stable satisfactory condition with no further questions at time of discharge. Attending note: I saw and evaluated the patient on the day of discharge, and agree with the discharge plan of care as discussed and documented. MD FERDINAND Talley
--- NOTE | 2016-10-11 17:57 | EDDOCDS ---
Nurse's Notes [facility] Name: Dimas Sherman Age: 81 yrs Sex: Male : 1935 Arrival Date: 10/09/2016 Time: 13:08 Bed 2 Private MD: Derian Kay E. Diagnosis: Acute lymphoblastic leukemia [ALL]-with palliative care only;Pancytopenia Presentation: 10/09 13:21 Presenting complaint: Patient states: states that he was at an appointment with his ml6 PCP, Patient states that his SBP was 82, sent here for evaluation, patient denies any further complaint. Adult Sepsis Screening: The patient does not have new or worsening altered mentation. Patient's respiratory rate is less than 22. Systolic blood pressure is greater than 100. Patient has a qSOFA score of 0- Negative Sepsis Screen. Suicide/Homicide risk assessment- the patient denies having any suicidal and/or homicidal ideations and does not present with any other emotional, behavioral or mental health complaints. 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 Transition of care: patient was not received from another setting of care. 13:21 Acuity: MICHAEL Level 3 ml6 13:21 Method Of Arrival: Ambulance ml6 Triage Assessment: 13:22 General: Appears in no apparent distress, Behavior is appropriate for age, cooperative. ml6 Pain: Denies pain. The patient is triaged at the bedside. See Assessment in Nurses Notes section of ED record. Neurological: No deficits noted. Level of Consciousness is awake, alert, Oriented to person, place, time. Cardiovascular: No deficits noted. Capillary refill < 3 seconds is brisk in bilateral fingers toes. Respiratory: No deficits noted. GI: No deficits noted. Abdomen is flat, non- distended Bowel sounds present X 4 quads. Historical: - Allergies: no known allergies; - Home Meds: 1. amlodipine 10 mg Oral tab 1 tab once daily (Last dose: 10/09/2016 07:00) 2. [place] Thyroid 60 mg Oral tab daily (Last dose: 10/09/2016 07:00) 3. B-12 DOTS oral 1000 mcg daily (Last dose: 10/09/2016 07:00) 4. Benicar 20 mg oral tab 1 tab once daily (Last dose: 10/09/2016 07:00) 5. Carafate 100 mg/mL Oral susp 10 mL 4 times per day (Last dose: 10/09/2016 07:00) 6. furosemide 40 mg Oral tab 1 tab once daily (Last dose: 10/09/2016 07:00) 7. omeprazole 40 mg Oral cpDR 2 times per day (Last dose: 10/09/2016 07:00) 8. Iron CR unknown Oral daily (Last dose: 10/09/2016 07:00) 9. persavision twice a day (Last dose: 10/09/2016 07:00) 10. WelChol 625 mg oral tab 3 tabs 2 times per day (Last dose: 10/09/2016 07:00) 11. Vitamin D Oral 93467 unit weekly (Last dose: 10/09/2016 07:00) 12. Zetia 10 mg Oral tab 1 tab once daily (Last dose: 10/09/2016 07:00) 13. Zoloft 100 mg Oral tab 1.5 tabs once daily (Last dose: 10/09/2016 07:00) - PMHx: Anemia; Arthritis; Depression; GERD; Headaches; hyperlipidemia; Hypertension; Hypothyroidism; prostate CA; thrombopenia; - PSHx: Cholecystectomy; Hernia repair; - The history from nurses notes was reviewed: and I agree with what is documented. - Social history: Smoking status: Patient states former smoker of tobacco. No barriers to communication noted, Speaks appropriately for age. - : The pt / caregiver states he / she is not on anticoagulants. Home medication list is obtained from the patient. - Hospitalizations: : No recent hospitalization is reported. - Exposure Risk Screening:: None identified. - Immunization history:: All immunizations up-to-date. - Family history: Not pertinent. - Social history:: the patient is a non-smoker, the patient does not drink alcohol. Screenin:50 Screening information is obtained from the patient. Fall risk: No risks identified. ml6 Assistance ADL's: requires no assistance with activities of daily living. Abuse/DV Screen: The patient / caregiver reports he/she is: not in a situation that causes fear, pain or injury. Nutritional screening: No deficits noted. Advance Directives: Currently, there is no health care proxy. home support is adequate. Assessment: 13:21 General: see triage assessment. ml6 14:02 Reassessment: Patient resting on stretcher. Denies chest pain or shortness of breath. kcs Talking with family member. 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 14:20 General: Appears in no apparent distress, comfortable, Behavior is appropriate for age, ml6 cooperative. Pain: Denies pain. Neurological: No deficits noted. Level of Consciousness is awake, alert, Oriented to person, place, time. Cardiovascular: No deficits noted. Capillary refill < 3 seconds is brisk in bilateral fingers toes Heart tones S1 S2 present Edema is absent. Pulses are all present. Rhythm is regular. Respiratory: No deficits noted. Airway is patent Respiratory effort is even, unlabored, Respiratory pattern is regular, symmetrical, Breath sounds are clear bilaterally. GI: No deficits noted. 15:20 Reassessment: Patient appears in no apparent distress at this time. Patient denies pain ml6 at this time. Patient states feeling better. Patient states symptoms have improved. patient continues to have no c/o pain, dizziness, SOB, or pain. 16:05 General: PRBC [id number] began infusing. ml6 16:20 Reassessment: Patient appears in no apparent distress at this time. Patient denies pain ml6 at this time. Patient states feeling better. Patient states symptoms have improved. 16:40 General: Platelets [id number] began infusing. ml6 16:53 General: Appears in no apparent distress, comfortable, Behavior is appropriate for age, ml6 cooperative. Pain: Denies pain. Neurological: No deficits noted. Cardiovascular: No deficits noted. Capillary refill < 3 seconds is brisk in bilateral fingers toes. Respiratory: No deficits noted. Airway is patent Respiratory effort is even, unlabored, Respiratory pattern is regular, symmetrical. Vital Signs: 13:21 BP 117 / 58; Pulse 80; Resp 18; Temp 97.8; Pulse Ox 94% on R/A; Weight 68.49 kg (M); ct3 Height 5 ft. 5 in. (165.10 cm) (R); Pain 7/10; 14:15 BP 110 / 56 (auto/); ml6 14:15 Pulse 73 MON; Resp 18; Pulse Ox 97% on R/A; Pain 0/10; ml6 14:30 BP 115 / 55 (auto/); ml6 14:30 Pulse 72 MON; Resp 18; Pulse Ox 96% on R/A; Pain 0/10; ml6 15:00 BP 128 / 60 (auto/); ml6 15:00 Pulse 74 MON; Resp 16; Pulse Ox 98% on R/A; ml6 15:30 BP 126 / 52 (auto/); ml6 15:30 Pulse 82 MON; Resp 18; Pulse Ox 98% on R/A; ml6 15:45 BP 129 / 51 (auto/); ml6 15:45 Pulse 79 MON; Resp 16; Pulse Ox 98% on R/A; ml6 16:00 BP 127 / 57 (auto/); ml6 16:00 Pulse 87 MON; Resp 16; Pulse Ox 96% on R/A; ml6 16:30 BP 106 / 55 (auto/); ml6 16:30 Pulse 80 MON; Resp 16; Pulse Ox 99% on R/A; ml6 16:45 BP 141 / 63 (auto/); ml6 16:45 Pulse 83 MON; Resp 18; Temp 98.1(O); Pulse Ox 98% on R/A; Pain 0/10; ml6 13:21 Body Mass Index 25.13 (68.49 kg, 165.10 cm) ct3 Vitals: 13:21 Log In Time N/A - ambulance arrival. ct3 ED Course: 13:09 Patient visited by Zehra Gordon PCA. ar3 13:09 Patient moved to Waiting ar3 13:10 Cha Kramer,RN is Primary Nurse. ar3 13:10 Hiren Nayak, RN is Primary Nurse. ar3 13:10 Derian Kay is Private Physician. ar3 13:10 Patient moved to 2 ar3 13:21 Patient has correct armband on for positive identification. Placed in gown. Bed in low ct3 position. Call light in reach. Side rails up X2. truck manager on. Pulse ox on. NIBP on. 13:21 Inserted peripheral IV: 18gauge IV in right antecubital area and blood collected. ml6 Patient tolerated the procedure well. Labs drawn. (by ED staff). 13:24 Patient visited by Candy Abraham PCA. ct3 13:24 EKG done. (by ED staff). Reviewed by Magdy Montejo MD. ct3 13:33 Triage Initiated ml6 13:37 Magdy Montejo MD is Attending Physician. pc 13:37 Patient visited by Magdy Montejo MD. pc 14:27 Patient visited by Hiren Nayak RN. ml6 14:27 DIFFERENTIAL NO CHARGE Sent. ml6 14:44 Primary Nurse role handed off by Cha Kramer,PEYTON [email or web address] 15:11 Rangel Medina is Hospitalizing Provider. pc 16:03 [facility] Payment Agreement was scanned into [employer] and attached to record. [email or web address] 16:50 Inserted peripheral IV: 16gauge IV in left forearm and blood collected. Patient ml6 tolerated the procedure well. No procedures done that require assistance. 16:54 The patient / caregiver is instructed regarding the plan of care and ED course. ml6 Administered Medications: 13:46 Drug: NS 0.9% 1000 ml [sodium chloride 0.9 % intravenous solution] Route: IV; Rate: 100 ml6 mL/hr; Site: right antecubital; Order Results: Lab Order: CBC with Diff; SPEC'M 10/09/16 13:22 Test: WHITE BLOOD COUNT; Value: 1.3; Range: 4.0-10.0; Abnormal: Below low normal; Units: K/mm3; Status: F Test: RED BLOOD COUNT; Value: 2.62; Range: 4.30-6.10; Abnormal: Below low normal; Units: M/mm3; Status: F Test: HEMOGLOBIN; Value: 7.6; Range: 14.0-18.0; Abnormal: Below low normal; Units: g/dl; Status: F Test: HEMATOCRIT; Value: 23.7; Range: 42.0-52.0; Abnormal: Below low normal; Units: %; Status: F Test: MEAN CORPUSCULAR VOLUME; Value: 90.5; Range: 80.0-96.0; Units: fl; Status: F Test: MEAN CORPUSCULAR HEMOGLOBIN; Value: 28.9; Range: 27.0-33.0; Units: pg; Status: F Test: MEAN CORPUSCULAR HGB CONC; Value: 32.0; Range: 32.0-36.5; Units: g/dl; Status: F Test: RED CELL DISTRIBUTION WIDTH; Value: 17.7; Range: 11.5-14.5; Abnormal: Above high normal; Units: %; Status: F Test: PLATELET COUNT, AUTOMATED; Value: 4; Range: 150-450; Abnormal: Critical Low; Units: k/mm3; Status: F Test: CORRECTED WHITE BLOOD COUNT; Value: 1.2; Units: K/mm3; Status: F Test: RED BLOOD COUNT; Value: 2.62; Range: 4.30-6.10; Abnormal: Below low normal; Units: M/mm3; Status: F Test: HEMOGLOBIN; Value: 7.6; Range: 14.0-18.0; Abnormal: Below low normal; Units: g/dl; Status: F Test: HEMATOCRIT; Value: 23.7; Range: 42.0-52.0; Abnormal: Below low normal; Units: %; Status: F Test: MEAN CORPUSCULAR VOLUME; Value: 90.5; Range: 80.0-96.0; Units: fl; Status: F Test: MEAN CORPUSCULAR HEMOGLOBIN; Value: 28.9; Range: 27.0-33.0; Units: pg; Status: F Test: MEAN CORPUSCULAR HGB CONC; Value: 32.0; Range: 32.0-36.5; Units: g/dl; Status: F Test: RED CELL DISTRIBUTION WIDTH; Value: 17.7; Range: 11.5-14.5; Abnormal: Above high normal; Units: %; Status: F Test: PLATELET COUNT, AUTOMATED; Value: 4; Range: 150-450; Abnormal: Critical Low; Units: k/mm3; Status: F Test: NEUTROPHILS; Value: 9; Range: 35-75; Abnormal: Below low normal; Units: %; Status: F Test: BANDS; Value: 6; Range: < 11; Units: %; Status: F Test: LYMPHOCYTES; Value: 58; Range: 16-52; Abnormal: Above high normal; Units: %; Status: F Test: MONOCYTES; Value: 6; Range: 0-8; Units: %; Status: F Test: EOSINOPHILS; Value: 1; Range: 0-5; Units: %; Status: F Test: BASOPHILS; Value: 1; Range: 0-4; Units: %; Status: F Test: METAMYELOCYTES; Value: 5; Range: 0-0; Abnormal: Above high normal; Units: %; Status: F Test: MYELOCYTES; Value: 4; Range: 0-0; Abnormal: Above high normal; Units: %; Status: F Test: BLAST CELLS; Value: 10; Range: 0-0; Abnormal: Above high normal; Units: %; Status: F Test: NUCLEATED RED BLOOD CELL; Value: 13; Range: 0-0; Abnormal: Above high normal; Units: %; Status: F Test: RBC MORPHOLOGY; Value: NORMAL; Status: F Test: HYPOCHROMASIA; Value: 1+; Status: F Test: ANISOCYTOSIS; Value: 1+; Status: F Lab Order: MED Profile; SPEC'M 10/09/16 13:22 Test: GLUCOSE, FASTING; Value: 105; Range: 83-110; Units: MG/DL; Status: F Test: BLOOD UREA NITROGEN; Value: 41; Range: 7-18; Abnormal: Above high normal; Units: MG/DL; Status: F Test: CREATININE FOR GFR; Value: 1.15; Range: 0.70-1.30; Units: MG/DL; Status: F Test: GLOMERULAR FILTRATION RATE; Value: > 60.0; Range: >35; Status: F Test: SODIUM LEVEL; Value: 142; Range: 136-145; Units: MEQ/L; Status: F Test: POTASSIUM SERUM; Value: 4.4; Range: 3.5-5.1; Units: MEQ/L; Status: F Test: CHLORIDE LEVEL; Value: 110; Range: 98-107; Abnormal: Above high normal; Units: MEQ/L; Status: F Test: CARBON DIOXIDE LEVEL; Value: 21; Range: 21-32; Units: MEQ/L; Status: F Test: ANION GAP; Value: 11; Range: 8-16; Units: MEQ/L; Status: F Test: CALCIUM LEVEL; Value: 8.9; Range: 8.8-10.2; Units: MG/DL; Status: F Test Note: ; Units are mL/min/1.73 m2 Chronic Kidney Disease Staging per NKF: Stage I & II GFR >=60 Normal to Mildly Decreased Stage III GFR 30-59 Moderately Decreased Stage IV GFR 15-29 Severely Decreased Stage V GFR <15 Very Little GFR Left ESRD GFR <15 on MACHINE CAGE MAKER Lab Order: Type & Screen; SPEC'M 10/09/16 13:22 Test: BLOOD TYPE; Value: AB POS; Status: F Test: AB SCREEN (INDIRECT YOLY)GEL; Value: NEGATIVE; Status: F Lab Order: PLATELET ESTIMATE; SPEC'M 10/09/16 13:22 Test: PLATELET ESTIMATE; Value: MARKED DECREASE; Range: NORMAL; Status: F Outcome: 15:11 Decision to Hospitalize by Provider. pc 16:54 Discharge Assessment: Patient awake, alert and oriented x 3. No cognitive and/or ml6 functional deficits noted. Patient verbalized understanding of disposition instructions. patient administered narcotics - no. The following High Risk Discharge criteria are identified: None. Admitted to PCU accompanied by nurse, accompanied by tech, via stretcher, on monitor, with chart. Condition: stable. No special radiology studies were completed. Property :Personal belongings accompany Pt. 16:56 Patient left the ED. ml6 Signatures: Magdy Montejo MD MD pc Sleeman, Kacey, RN RN Hiren White RN RN ml6 Zehra Gordon, GENERAL MANAGER ROAD PRODUCTION GENERAL MANAGER RO[address] PRODUCTION ar3 AbrahamCandy quiñonez, GENERAL MANAGER ROAD PRODUCTION GENERAL MANAGER ROAD PRODUCTION ct3 Radha Chappell RN RN [id number] Doretha Hernández, Reg Reg [email or web address] Corrections: (The following items were deleted from the chart) 13:22 13:21 BP 117 / 58; Pulse 80bpm; Resp 18bpm; Pulse Ox 94% RA; Temp 97.8F; 68.49 kg ct3 Measured; Height 5 ft. 5 in. Reported; BMI: 25.1; Pain 0/10; ct3 Chart Complete MTDD
--- NOTE | 2016-10-11 17:57 | EDDOCDS ---
Physician Documentation [facility] Name: Dimas Sherman Age: 81 yrs Sex: Male : 1935 Arrival Date: 10/09/2016 Time: 13:08 Bed 2 Private MD: Derian Kay E. Disposition: 10/09 15:06 Critical Care: Critical care not applicable. pc Disposition: 10/09/16 15:11 Hospitalization ordered by Rangel Medina for Inpatient Admission. 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 - Bed requested for M PCU. - Status is Inpatient Admission. ml6 - Condition is Stable. - Problem is an acute exacerbation. - Symptoms are unchanged. HPI: 15:06 This 81 yrs old Male presents to ER via Ambulance with complaints of Blood pc Pressure Problem. 15:06 The history is obtained from the patient. He was seen by his PCP today and sent for pc admission for transfusions. He has ALL, being treated palliatively. He was found to be hypotensive upon standing today. He denies any pain. His only complaint is fatigue. The patient has experienced similar episodes in the past, chronically. Historical: - Allergies: no known allergies; - Home Meds: 1. amlodipine 10 mg Oral tab 1 tab once daily (Last dose: 10/09/2016 07:00) 2. [place] Thyroid 60 mg Oral tab daily (Last dose: 10/09/2016 07:00) 3. B-12 DOTS oral 1000 mcg daily (Last dose: 10/09/2016 07:00) 4. Benicar 20 mg oral tab 1 tab once daily (Last dose: 10/09/2016 07:00) 5. Carafate 100 mg/mL Oral susp 10 mL 4 times per day (Last dose: 10/09/2016 07:00) 6. furosemide 40 mg Oral tab 1 tab once daily (Last dose: 10/09/2016 07:00) 7. omeprazole 40 mg Oral cpDR 2 times per day (Last dose: 10/09/2016 07:00) 8. Iron CR unknown Oral daily (Last dose: 10/09/2016 07:00) 9. persavision twice a day (Last dose: 10/09/2016 07:00) 10. WelChol 625 mg oral tab 3 tabs 2 times per day (Last dose: 10/09/2016 07:00) 11. Vitamin D Oral 52082 unit weekly (Last dose: 10/09/2016 07:00) 12. Zetia 10 mg Oral tab 1 tab once daily (Last dose: 10/09/2016 07:00) 13. Zoloft 100 mg Oral tab 1.5 tabs once daily (Last dose: 10/09/2016 07:00) - PMHx: Anemia; Arthritis; Depression; GERD; Headaches; hyperlipidemia; Hypertension; Hypothyroidism; prostate CA; thrombopenia; - PSHx: Cholecystectomy; Hernia repair; - The history from nurses notes was reviewed: and I agree with what is documented. - Social history: Smoking status: Patient states former smoker of tobacco. No barriers to communication noted, Speaks appropriately for age. - : The pt / caregiver states he / she is not on anticoagulants. Home medication list is obtained from the patient. - Hospitalizations: : No recent hospitalization is reported. - Exposure Risk Screening:: None identified. - Immunization history:: All immunizations up-to-date. - Family history: Not pertinent. - Social history:: the patient is a non-smoker, the patient does not drink alcohol. ROS: 15:06 All systems are negative except as listed. pc Exam: 15:06 General Appearance: no acute distress, alert. pc 15:06 EENT: ears, nose and throat normal, pharynx normal, mucous membranes moist pale conjunctiva. 15:06 Neck: The exam reveals no acute abnormalities. ROM is normal and painless. No nuchal rigidity is noted.. 15:06 Respiratory: no respiratory distress, normal breath sounds. 15:06 CVS: regular pulse rate, regular rhythm, normal S1 and S2, no murmurs, strong peripheral pulses, normal capillary refill, BP 115/ 55. 15:06 Abdomen: soft, non-tender, no organomegaly, normal bowel sounds. 15:06 Back: normal inspection. 15:06 Skin: skin color is normal, warm, dry. 15:06 Extremities: The extremities have a grossly normal appearance. 15:06 Neuro: oriented x 3, cranial nerves normal as tested, no motor deficits, no sensory deficits. 15:06 Psych: normal mood. Vital Signs: 13:21 BP 117 / 58; Pulse 80; Resp 18; Temp 97.8; Pulse Ox 94% on R/A; Weight 68.49 kg / ct3 150.99 lbs (M); Height 5 ft. 5 in. (165.10 cm) (R); Pain 7/10; 14:15 BP 110 / 56 (auto/); ml6 14:15 Pulse 73 MON; Resp 18; Pulse Ox 97% on R/A; Pain 0/10; ml6 14:30 BP 115 / 55 (auto/); ml6 14:30 Pulse 72 MON; Resp 18; Pulse Ox 96% on R/A; Pain 0/10; ml6 15:00 BP 128 / 60 (auto/); ml6 15:00 Pulse 74 MON; Resp 16; Pulse Ox 98% on R/A; ml6 15:30 BP 126 / 52 (auto/); ml6 15:30 Pulse 82 MON; Resp 18; Pulse Ox 98% on R/A; ml6 15:45 BP 129 / 51 (auto/); ml6 15:45 Pulse 79 MON; Resp 16; Pulse Ox 98% on R/A; ml6 16:00 BP 127 / 57 (auto/); ml6 16:00 Pulse 87 MON; Resp 16; Pulse Ox 96% on R/A; ml6 16:30 BP 106 / 55 (auto/); ml6 16:30 Pulse 80 MON; Resp 16; Pulse Ox 99% on R/A; ml6 16:45 BP 141 / 63 (auto/); ml6 16:45 Pulse 83 MON; Resp 18; Temp 98.1(O); Pulse Ox 98% on R/A; Pain 0/10; ml6 13:21 Body Mass Index 25.13 (68.49 kg, 165.10 cm) ct3 MDM: 13:18 ECG WITH READING ER PHYS+CARDIAG ordered. EDMS 13:37 IV Saline Lock ordered. pc 13:37 NS 0.9% 1000 ml IV at 100 mL/hr continuous ordered. pc 13:38 Director Report/Pulse Ox/q 30 min VS ordered. pc 13:38 CBC with Diff Ordered. EDMS 13:38 MED Profile Ordered. EDMS 13:38 Type & Screen Ordered. EDMS 14:09 DIFFERENTIAL NO CHARGE Ordered. EDMS 14:38 REGULAR+DIET ordered. EDMS 14:40 CBC with Diff Reviewed. pc 14:40 MED Profile Reviewed. pc 14:40 Type & Screen Reviewed. pc 14:40 PLATELET ESTIMATE Reviewed. pc 14:55 Transfuse Single Donor Pheresis Platelets, ensure ordered in lab ordered. pc 14:55 Transfuse PRBC's 1 unit, ensure PRBCs ordered in lab ordered. pc 14:55 Type and Cross, Packed Cells Ordered. EDMS 14:55 Platelets Pheresis Ordered. EDMS 14:56 BED REQUEST+ADM ordered. EDMS 15:06 Differential Diagnosis: anemia, ALL. Plan: labs, EKG. Data reviewed: old medical pc records, vital signs, nurses notes, EKG(s), lab test results. Test interpretation: EKG. 15:06 Test interpretation: LAB - all labs as ordered have been reviewed, interpreted and pc considered in the overall management of the clinical presentation;. The patient has been re-examined and re-evaluated. There is no appreciated change of the patient's symptoms at this time. Physician consultation: Dr. Lowery regarding admission. Disposition: The historical points, examination findings, and any diagnostic results supporting the provided diagnosis, were discussed with the patient or legal guardian. The need for further work-up and/or treatment in the hospital was explained. 15:32 Admission / Observation Status ordered. EDMS 15:32 2 GRAM SODIUM DIET ordered. EDMS 15:39 Financial registration complete. [facility] 16:03 [facility] Payment Agreement was scanned into [employer] and attached to record. [email or web address] EC:06 Rate is 71 beats/min. Rhythm is regular, Normal Sinus Rhythm with PACs. QRS [place] is pc Normal. [place] interval is normal. QRS interval is normal. QT interval is normal. No Q waves. T waves are Normal. No ST changes noted. Clinical impression: Normal Sinus Rhythm. Administered Medications: 13:46 Drug: NS 0.9% 1000 ml [sodium chloride 0.9 % intravenous solution] Route: IV; Rate: 100 ml6 mL/hr; Site: right antecubital; Signatures: Dispatcher [employer] [facility] Magdy Montejo MD MD pc Peters, Mary, RN RN mcp Lowe, Matthew, RN RN ml6 Beck, Gabriela gjb Sorenson, Kimberly, Reg Reg [email or web address] The chart was reviewed and I authenticate all verbal orders and agree with the evaluation and treatment provided.Corrections: (The following items were deleted from the chart) 15:14 14:58 TYPE & SCREEN ordered. EDWY EDMS Attachments: 16:03 [facility] Payment Agreement [email or web address] Chart Complete MTDD
--- NOTE | 2016-10-11 17:57 | EDDOCDS ---
Physician Documentation [facility] Name: Dimas Sherman Age: 81 yrs Sex: Male : 1935 Arrival Date: 10/09/2016 Time: 13:08 Bed 2 Private MD: Derian Kay E. Disposition: 10/09 15:06 Critical Care: Critical care not applicable. pc Disposition: 10/09/16 15:11 Hospitalization ordered by Rangel Medina for Inpatient Admission. 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 - Bed requested for M PCU. - Status is Inpatient Admission. ml6 - Condition is Stable. - Problem is an acute exacerbation. - Symptoms are unchanged. HPI: 15:06 This 81 yrs old Male presents to ER via Ambulance with complaints of Blood pc Pressure Problem. 15:06 The history is obtained from the patient. He was seen by his PCP today and sent for pc admission for transfusions. He has ALL, being treated palliatively. He was found to be hypotensive upon standing today. He denies any pain. His only complaint is fatigue. The patient has experienced similar episodes in the past, chronically. Historical: - Allergies: no known allergies; - Home Meds: 1. amlodipine 10 mg Oral tab 1 tab once daily (Last dose: 10/09/2016 07:00) 2. [place] Thyroid 60 mg Oral tab daily (Last dose: 10/09/2016 07:00) 3. B-12 DOTS oral 1000 mcg daily (Last dose: 10/09/2016 07:00) 4. Benicar 20 mg oral tab 1 tab once daily (Last dose: 10/09/2016 07:00) 5. Carafate 100 mg/mL Oral susp 10 mL 4 times per day (Last dose: 10/09/2016 07:00) 6. furosemide 40 mg Oral tab 1 tab once daily (Last dose: 10/09/2016 07:00) 7. omeprazole 40 mg Oral cpDR 2 times per day (Last dose: 10/09/2016 07:00) 8. Iron CR unknown Oral daily (Last dose: 10/09/2016 07:00) 9. persavision twice a day (Last dose: 10/09/2016 07:00) 10. WelChol 625 mg oral tab 3 tabs 2 times per day (Last dose: 10/09/2016 07:00) 11. Vitamin D Oral 25617 unit weekly (Last dose: 10/09/2016 07:00) 12. Zetia 10 mg Oral tab 1 tab once daily (Last dose: 10/09/2016 07:00) 13. Zoloft 100 mg Oral tab 1.5 tabs once daily (Last dose: 10/09/2016 07:00) - PMHx: Anemia; Arthritis; Depression; GERD; Headaches; hyperlipidemia; Hypertension; Hypothyroidism; prostate CA; thrombopenia; - PSHx: Cholecystectomy; Hernia repair; - The history from nurses notes was reviewed: and I agree with what is documented. - Social history: Smoking status: Patient states former smoker of tobacco. No barriers to communication noted, Speaks appropriately for age. - : The pt / caregiver states he / she is not on anticoagulants. Home medication list is obtained from the patient. - Hospitalizations: : No recent hospitalization is reported. - Exposure Risk Screening:: None identified. - Immunization history:: All immunizations up-to-date. - Family history: Not pertinent. - Social history:: the patient is a non-smoker, the patient does not drink alcohol. ROS: 15:06 All systems are negative except as listed. pc Exam: 15:06 General Appearance: no acute distress, alert. pc 15:06 EENT: ears, nose and throat normal, pharynx normal, mucous membranes moist pale conjunctiva. 15:06 Neck: The exam reveals no acute abnormalities. ROM is normal and painless. No nuchal rigidity is noted.. 15:06 Respiratory: no respiratory distress, normal breath sounds. 15:06 CVS: regular pulse rate, regular rhythm, normal S1 and S2, no murmurs, strong peripheral pulses, normal capillary refill, BP 115/ 55. 15:06 Abdomen: soft, non-tender, no organomegaly, normal bowel sounds. 15:06 Back: normal inspection. 15:06 Skin: skin color is normal, warm, dry. 15:06 Extremities: The extremities have a grossly normal appearance. 15:06 Neuro: oriented x 3, cranial nerves normal as tested, no motor deficits, no sensory deficits. 15:06 Psych: normal mood. Vital Signs: 13:21 BP 117 / 58; Pulse 80; Resp 18; Temp 97.8; Pulse Ox 94% on R/A; Weight 68.49 kg / ct3 150.99 lbs (M); Height 5 ft. 5 in. (165.10 cm) (R); Pain 7/10; 14:15 BP 110 / 56 (auto/); ml6 14:15 Pulse 73 MON; Resp 18; Pulse Ox 97% on R/A; Pain 0/10; ml6 14:30 BP 115 / 55 (auto/); ml6 14:30 Pulse 72 MON; Resp 18; Pulse Ox 96% on R/A; Pain 0/10; ml6 15:00 BP 128 / 60 (auto/); ml6 15:00 Pulse 74 MON; Resp 16; Pulse Ox 98% on R/A; ml6 15:30 BP 126 / 52 (auto/); ml6 15:30 Pulse 82 MON; Resp 18; Pulse Ox 98% on R/A; ml6 15:45 BP 129 / 51 (auto/); ml6 15:45 Pulse 79 MON; Resp 16; Pulse Ox 98% on R/A; ml6 16:00 BP 127 / 57 (auto/); ml6 16:00 Pulse 87 MON; Resp 16; Pulse Ox 96% on R/A; ml6 16:30 BP 106 / 55 (auto/); ml6 16:30 Pulse 80 MON; Resp 16; Pulse Ox 99% on R/A; ml6 16:45 BP 141 / 63 (auto/); ml6 16:45 Pulse 83 MON; Resp 18; Temp 98.1(O); Pulse Ox 98% on R/A; Pain 0/10; ml6 13:21 Body Mass Index 25.13 (68.49 kg, 165.10 cm) ct3 MDM: 13:18 ECG WITH READING ER PHYS+CARDIAG ordered. EDMS 13:37 IV Saline Lock ordered. pc 13:37 NS 0.9% 1000 ml IV at 100 mL/hr continuous ordered. pc 13:38 Quality Assurance Supervisor Final/Pulse Ox/q 30 min VS ordered. pc 13:38 CBC with Diff Ordered. EDMS 13:38 MED Profile Ordered. EDMS 13:38 Type & Screen Ordered. EDMS 14:09 DIFFERENTIAL NO CHARGE Ordered. EDMS 14:38 REGULAR+DIET ordered. EDMS 14:40 CBC with Diff Reviewed. pc 14:40 MED Profile Reviewed. pc 14:40 Type & Screen Reviewed. pc 14:40 PLATELET ESTIMATE Reviewed. pc 14:55 Transfuse Single Donor Pheresis Platelets, ensure ordered in lab ordered. pc 14:55 Transfuse PRBC's 1 unit, ensure PRBCs ordered in lab ordered. pc 14:55 Type and Cross, Packed Cells Ordered. EDMS 14:55 Platelets Pheresis Ordered. EDMS 14:56 BED REQUEST+ADM ordered. EDMS 15:06 Differential Diagnosis: anemia, ALL. Plan: labs, EKG. Data reviewed: old medical pc records, vital signs, nurses notes, EKG(s), lab test results. Test interpretation: EKG. 15:06 Test interpretation: LAB - all labs as ordered have been reviewed, interpreted and pc considered in the overall management of the clinical presentation;. The patient has been re-examined and re-evaluated. There is no appreciated change of the patient's symptoms at this time. Physician consultation: Dr. Lowery regarding admission. Disposition: The historical points, examination findings, and any diagnostic results supporting the provided diagnosis, were discussed with the patient or legal guardian. The need for further work-up and/or treatment in the hospital was explained. 15:32 Admission / Observation Status ordered. EDMS 15:32 2 GRAM SODIUM DIET ordered. EDMS 15:39 Financial registration complete. [facility] 16:03 [facility] Payment Agreement was scanned into [email or web address] and attached to record. [email or web address] EC:06 Rate is 71 beats/min. Rhythm is regular, Normal Sinus Rhythm with PACs. QRS [place] is pc Normal. [place] interval is normal. QRS interval is normal. QT interval is normal. No Q waves. T waves are Normal. No ST changes noted. Clinical impression: Normal Sinus Rhythm. Administered Medications: 13:46 Drug: NS 0.9% 1000 ml [sodium chloride 0.9 % intravenous solution] Route: IV; Rate: 100 ml6 mL/hr; Site: right antecubital; Signatures: Dispatcher [employer] [facility] Magdy Montejo MD MD pc Peters, Mary, RN RN mcp Lowe, Matthew, RN RN ml6 Beck, Gabriela gjb Sorenson, Kimberly, Reg Reg [email or web address] The chart was reviewed and I authenticate all verbal orders and agree with the evaluation and treatment provided.Corrections: (The following items were deleted from the chart) 15:14 14:58 TYPE & SCREEN ordered. EDMA EDMS Attachments: 16:03 [place] Payment Agreement [email or web address] Chart Complete MTDD
== END 2016-10-10 15:22 | disposition home or self-care (01) ==
LOC: M ED 13:08 → INTOOBSV 15:28 → M ED INP 15:28 → M PCU 17:03
PROVIDERS: ADMIT Internal Medicine; ATTEND Family Medicine
DX: C91.00 Acute lymphoblastic leukemia not having achieved remission (principal); D64.89 Other specified anemias; I10 Essential (primary) hypertension; I50.9 Heart failure, unspecified; K21.9 Gastro-esophageal reflux disease without esophagitis; Z79.899 Other long term (current) drug therapy; E78.4 Other hyperlipidemia; E03.9 Hypothyroidism, unspecified; F32.9 Major depressive disorder, single episode, unspecified; Z85.46 Personal history of malignant neoplasm of prostate
CPT/HCPCS: 36415; 36430; 80048; 80053; 83880; 85025; 86850; 86900; 86901; 86920; 93005; 93041; 96375; 99285; G0378; J1940; P9016; P9034

== ENCOUNTER → 2016-10-09 | Outpatient (REF) | payer MEDICARE ==
[~2016-10-09] MED LIST: AMLO10TA2 PO; BENI20TA5 PO; DRIS50002 PO; FURO20TA2 PO; FURO40TA2 PO; IRON65TA PO; MIRT15TA3 PO; OMEP40CA2 PO; PRESCAP PO; PROC10TA PO; SUCR1SS PO; THYR60TA PO; TRAZ50TA4 PO; TUMS500C PO; VITA10002 PO; WELC625T PO; ZETI10TA2 PO; ZOLO50TA PO
[2016-10-09 13:09] LABS: DIFF SLIDE NUMBER 233; MEAN CORPUSCULAR HEMOGLOBIN 28.5 pg (27.0-33.0); MEAN CORPUSCULAR HGB CONC 31.8 g/dl (32.0-36.5); MEAN CORPUSCULAR VOLUME 89.8 fl (80.0-96.0); RED CELL DISTRIBUTION WIDTH 17.6 % (11.5-14.5); WHITE BLOOD COUNT 1.3 K/mm3 (4.0-10.0)
[2016-10-09 13:15] LABS: PLATELET COUNT, AUTOMATED 8 k/mm3 (150-450)
[2016-10-09 13:16] LABS: ANION GAP 13 MEQ/L (8-16); BLOOD UREA NITROGEN 41 MG/DL (7-18); CALCIUM LEVEL 9.1 MG/DL (8.8-10.2); CARBON DIOXIDE LEVEL 20 MEQ/L (21-32); CHLORIDE LEVEL 110 MEQ/L (98-107); CREATININE FOR GFR 1.16 MG/DL (0.70-1.30); GLOMERULAR FILTRATION RATE > 60.0 (>35); GLUCOSE, FASTING 103 MG/DL (83-110); POTASSIUM SERUM 4.4 MEQ/L (3.5-5.1); SODIUM LEVEL 143 MEQ/L (136-145)
[2016-10-09 14:28] LABS: BANDS 6 % (< 11); BASOPHILS 1 % (0-4); BLAST CELLS 10 % (0-0); EOSINOPHILS 1 % (0-5)
[2016-10-09 14:29] LABS: CORRECTED WHITE BLOOD COUNT 1.2 K/mm3; HYPOCHROMASIA 1+; NUCLEATED RED BLOOD CELL 13 % (0-0)
[2016-10-09 14:30] LABS: ANISOCYTOSIS 1+
== END ==
LOC: M SFHCPLAZ 12:08
PROVIDERS: ATTEND Physician Assistant Medical
DX: C91.00 Acute lymphoblastic leukemia not having achieved remission (principal)